=== PATIENT | female | born 1955 | race Caucasian/White ===

== ENCOUNTER 2018-08-09 14:34 | Inpatient (IN) | payer OTHER ==
[~2018-08-09] VITALS: Ht 170.2 cm; Wt 88.5 kg
[2018-08-09] VITALS (11 sets, daily range): BP systolic 92–133; BP diastolic 55–71
--- NOTE | ~2018-08-09 | EKG ---
[place], [place] ELECTROCARDIOGRAM REPORT NAME: KOKO BUSH UNIT #: [id number] ROOM: [facility] DOCTOR: FORREST DRAFT REPORT BIRTHDATE: [birth year] [facility] Test Date: 2018-08-09 Test Time: 21:20:25 Pat Name: KOKO BUSH Department: Room: [facility] Gender: F Computer Project Manager: : 1955 Requested By: SHIRLEY CARREON Order Number: [id number] Reading MD: Fito Zheng MD Measurements Intervals [place] Rate: 87 P: 58 [place]: 117 QRS: -2 QRSD: 91 T: -28 QT: 394 QTc: 474 Interpretive Statements Sinus rhythm, baseline artifact. Borderline short [place] interval Inferior infarct, age indeterminate Electronically Signed On 08-10-2018 15:42:20 PST by Fito Zheng MD CM:EKGRPT:ELECTROCARDIOGRAM REPORT [id number] SHIRLEY MARANY DRAFT REPORT SHIRLEY CARREON MD
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
--- NOTE | ~2018-08-09 | EKG ---
[place], [place] ELECTROCARDIOGRAM REPORT NAME: KOKO BUSH UNIT #: [id number] ROOM: [facility] DOCTOR: FORREST DRAFT REPORT BIRTHDATE: [birth year] [facility] Test Date: 2018-08-09 Test Time: 17:44:55 Pat Name: KOKO BUSH Department: Room: [facility] Gender: F Binder Sorter: Micaela Villa : 1955 Requested By: SHIRLEY CARREON Order Number: [id number] Reading MD: Fito Zheng MD Measurements Intervals [place] Rate: 91 P: 63 [place]: 118 QRS: 67 QRSD: 82 T: 52 QT: 374 QTc: 461 Interpretive Statements Sinus rhythm Borderline short [place] interval Low voltage, extremity leads Electronically Signed On 08-10-2018 15:41:49 PST by Fito Zheng MD CM:EKGRPT:ELECTROCARDIOGRAM REPORT [id number] SHIRLEY CARREON MD EPIPHANY DRAFT REPORT SHIRLEY CARREON MD
--- NOTE | ~2018-08-09 | O ---
[place], [place] OPERATIVE NOTE NAME: KOKO BUSH UNIT #: [id number] ROOM: 505 DOCTOR: JOSE MUNROE MD BIRTHDATE: [birth year] DOS: 08/12/2018 GASTROENDOSCOPIC REPORT INDICATIONS: This is a 63-year-old patient who presented with chief complaint of anemia, undergoing investigation. The patient with a history of hepatitis C, history of multiple medical issues as well. Consultation has been dictated. PROCEDURE: Today's procedure part of investigation is panendoscopy plus biopsy and photographic series. PREMEDICATION: Propofol. SCOPE: Olympus forward-viewing gastroscope Q10 video. REPORT: After putting the patient in left lateral position and application of lubricant to the scope, scope was introduced. Thereafter, under direct visualization, I advanced throughout the length of esophagus. Esophageal varicosity was of 2+, was noticed in multiple rows. Gastric pouch was entered. Gastritis seen. Duodenal bulb, second and third part within normal limits. Small hiatal hernia noticed. The patient extubated, tolerated the procedure well. IMPRESSION: Esophageal varicosity, small hiatal hernia, gastritis, status post biopsy. PLAN AND DISCUSSION: The patient requires famotidine and omeprazole. would suffice management of the gastritis. Supportive care. Elevation of the head of the bed 6 inch all time. Follow up on H and H periodically. Somewhere in future, she is more qualified as far as prominence of esophageal varicosities concerned that esophageal band ligation may be necessary. The patient with a history of juliet hypertension secondary to underlying hepatitis C history. Thank you very much indeed for your kind referral. [place], [place] OPERATIVE NOTE NAME: KOKO BUSH UNIT #: [id number] ROOM: 505 DOCTOR: JOSE MUNROE MD BIRTHDATE: [birth year] JOSE MUNROE MD CM:OPRECORD:OPERATIVE NOTE [id number] JOSE MUNROE MD 08/20/18 0725 interface
--- NOTE | ~2018-08-09 | EKG ---
[place], [place] ELECTROCARDIOGRAM REPORT NAME: KOKO BUSH UNIT #: [id number] ROOM: [facility] DOCTOR: FORREST DRAFT REPORT BIRTHDATE: [birth year] [facility] Test Date: 2018-08-09 Test Time: 15:18:42 Pat Name: KOKO BUSH Department: Room: [facility] Gender: F Reports Analysis Manager: Micaela Villa : 1955 Requested By: SHIRLEY CARREON Order Number: [id number] Reading MD: Fito Zheng MD Measurements Intervals [place] Rate: 90 P: 44 [place]: 126 QRS: 58 QRSD: 74 T: 51 QT: 365 QTc: 447 Interpretive Statements Sinus rhythm Low voltage, extremity leads Electronically Signed On 08-10-2018 15:41:27 PST by Fito Zheng MD CM:EKGRPT:ELECTROCARDIOGRAM REPORT [id number] 1541 SHIRLEY CLAYTON DRAFT REPORT SHIRLEY CARREON MD
[~2018-08-09 14:34] MED LIST: AUGMENTIN 875 M1 TAB PO; CYCLOBENZAPRINE5 M3 PO; DAYPRO600 M1 PO; DICLOFENAC SOD75 MG PO; HYDROCODONE BIT1 T11 PO; MEDROL DOSEPAK4 MG PO; NAPROSYN500 MG PO; NAPROXEN220 MG PO; NORCO 5-325 TA1 EACH PO; VICODIN 5/500 505 MG PO
[2018-08-09 15:08] LABS: HEMATOCRIT 19.6 % (37.0-47.0); MEAN CELL VOLUME 62.6 fl (81.0-99.0); MEAN PLATELET VOLUME 8.8 fl (9.6-12.3); NUCLEATED RED BLOOD CELL 0.1 10*3/uL (0.0-0.0); NUCLEATED RED BLOOD CELL 1.1 % (0.0-0.0); PLATELET COUNT AUTOMATED 262 10*3/uL (130-400); RED BLOOD COUNT 3.13 10*6/uL (4.10-5.10); RED CELL DISTRI WIDTH 26.4 % (0-14.5); WHITE BLOOD COUNT 5.6 10*3/uL (4.8-10.8)
[2018-08-09 15:24] LABS: ACT PARTIAL THROMBO TIME 27.3 SECONDS (20.8-31.5); INTERNATIONAL NORM RATIO 1.3 (2.0-3.5)
[2018-08-09 15:33] LABS: ALBUMIN 2.3 gm/dl (3.1-4.5); ALKALINE PHOSPHATASE 73 U/L (45-117); BUN 12 mg/dl (7-24); CHLORIDE 104 mmol/L (98-107); CREATININE 0.74 mg/dL (0.55-1.02); POTASSIUM 3.7 mmol/L (3.5-5.1); SGOT/AST 40 IU/L (3-35); SGPT/ALT 25 U/L (12-78); SODIUM 135 mmol/L (136-145)
[2018-08-09 15:34] LABS: TROPONIN I < 0.015 ng/ml (<0.045)
[2018-08-09 15:39] LABS: BASOPHILS 1 % (0-1); PLATELET SUFFICIENCY NORMAL (NORMAL); TOTAL CELLS COUNTED 100 #CELLS
[2018-08-09 15:42] LABS: TARGET CELLS FEW
[2018-08-09 15:50] LABS: MICROCYTOSIS SLIGHT
[2018-08-09 15:52] LABS: HEMOGLOBIN 4.7 g/dl (12.0-16.0)
--- NOTE | 2018-08-09 17:25 | NUR ---
PT TOLERATING BLOOD TRANSFUSION WITHOUT DIFFICULTY. VSS. WILL CONTINUE TO MONITOR.
--- NOTE | 2018-08-09 18:25 | NUR ---
A 63, admitted to [facility], under the services of SHIREEN Hicks DO with a diagnosis of GI BLEED. Chief complaint is SHORTNESS OF BREATH. Patient arrived via ambulance from ER. Monitor applied. Initial assessment completed. Vital signs taken and recorded. SHIREEN HICKS DO notified of admission to the unit. Orders received. See assessment for past medical history, medications and allergies. Patient and/or family oriented to unit. [facility] visitation policy reviewed. Clothing/patient valuable form completed. ATUL ROSA
--- NOTE | 2018-08-09 20:00 | NUR ---
PATIENT LAYING IN BED WITH FAMILY AT THE BEDSIDE. PATIENT C/O BACK PAIN THAT RADIATES UP THROUGH SHOULDERS, ABDOMINAL BLOATING AND LEG SWELLING/TIGHTNESS. PATIENT A&OX3 AND AMBULATORY WITH ASSISTANCE. PATIENT REPORTS FEELING SLUGGISH, WEAK AND BECOMES SHORT OF BREATHE WITH EXERTION. BLOOD TRANSFUSING AT THIS TIME, CALL LIGHT WITHIN REACH. SEE ASSESSMENT.
[2018-08-09 21:25] LABS: HEMATOCRIT 22.3 % (37.0-47.0); HEMOGLOBIN 6.3 g/dl (12.0-16.0)
--- NOTE | 2018-08-09 22:19 | NUR ---
IV MORPHINE GIVEN PER PT REQUEST FOR ABDOMINAL PAIN RATED A 8/10 AND DESCRIBED A CONSTANT SHARP STABBING PAIN THAT RADIATES UP THROUGH PATIENT SHOULDERS. WILL CONTINUE TO MONITOR AND REASSESS. CALL LIGHT WITHIN REACH.
--- NOTE | 2018-08-09 23:13 | NUR ---
SPOKE WITH DR. VIDAL REGARDING PATIENT CARE. ORDERS RECEIVED TO GIVE LASIX NOW AND TO RESCHEDULE CBC FOR 3 HOURS AFTER BLOOD TRANSFUSION COMPLETED.
[2018-08-10] VITALS: BP 132/68
[2018-08-10 01:29] LABS: HEMATOCRIT 24.9 % (37.0-47.0); MEAN CORPUSCULAR HGB 19.1 pg (27.0-31.0); MEAN CORPUSCULAR HGB CONC 28.1 g/dl (33.0-37.0); MEAN PLATELET VOLUME 8.8 fl (9.6-12.3); NUCLEATED RED BLOOD CELL 0.1 10*3/uL (0.0-0.0); NUCLEATED RED BLOOD CELL 1.3 % (0.0-0.0); PLATELET COUNT AUTOMATED 206 10*3/uL (130-400); RED BLOOD COUNT 3.66 10*6/uL (4.10-5.10); RED CELL DISTRI WIDTH 28.2 % (0-14.5); WHITE BLOOD COUNT 6.9 10*3/uL (4.8-10.8)
[2018-08-10 01:52] LABS: PLATELET SUFFICIENCY NORMAL (NORMAL); POLYCHROMASIA SLIGHT; TOTAL CELLS COUNTED 100 #CELLS
[2018-08-10 01:53] LABS: MICROCYTOSIS MODERATE; SCHISTOCYTES FEW
[2018-08-10 01:54] LABS: TARGET CELLS FEW
--- NOTE | 2018-08-10 02:15 | NUR ---
DR. VIDAL NOTIFIED OF CBC RESULTS. NO FURTHER ORDERS AT THIS TIME.
--- NOTE | 2018-08-10 03:41 | NUR ---
iv morphine given per pt request for abdominal pain rated 7/10 and described as a sharp pain. will continue to monitor and reassess.
[2018-08-10 04:00] VITALS: BP 116/59
[2018-08-10 05:25] LABS: BUN 13 mg/dl (7-24); CHLORIDE 105 mmol/L (98-107); POTASSIUM 3.6 mmol/L (3.5-5.1); SODIUM 137 mmol/L (136-145)
[2018-08-10 05:36] LABS: CHOLESTEROL 63 mg/dL (<200); FREE T4 1.09 ng/dl (0.76-1.46); HDL CHOLESTEROL 13 mg/dl (40-60); LDL CHOLESTEROL 40 mg/dL (9-159); PHOSPHOROUS 3.2 mg/dL (2.5-4.9); THYROID STIM HORMONE (HS) 0.589 uIU/ml (0.358-4.75); TRIGLYCERIDES 48 mg/dl (<150); VLDL CHOLESTEROL 10 mg/dL (6-40)
[2018-08-10 05:43] LABS: HEMATOCRIT 24.6 % (37.0-47.0); HEMOGLOBIN 6.8 g/dl (12.0-16.0); MEAN CELL VOLUME 67.8 fl (81.0-99.0); MEAN CORPUSCULAR HGB 18.7 pg (27.0-31.0); MEAN CORPUSCULAR HGB CONC 27.6 g/dl (33.0-37.0); MEAN PLATELET VOLUME 9.4 fl (9.6-12.3); NUCLEATED RED BLOOD CELL 0.1 10*3/uL (0.0-0.0); NUCLEATED RED BLOOD CELL 1.3 % (0.0-0.0); PLATELET COUNT AUTOMATED 231 10*3/uL (130-400); RED BLOOD COUNT 3.63 10*6/uL (4.10-5.10); RED CELL DISTRI WIDTH 28.3 % (0-14.5); WHITE BLOOD COUNT 7.1 10*3/uL (4.8-10.8)
[2018-08-10 07:00] LABS: BASOPHILS 1 % (0-1); POLYCHROMASIA SLIGHT; TOTAL CELLS COUNTED 100 #CELLS
[2018-08-10 07:01] LABS: MICROCYTOSIS MODERATE; PLATELET SUFFICIENCY NORMAL (NORMAL); TARGET CELLS FEW
--- NOTE | 2018-08-10 07:32 | NUR ---
DR. MUNROE NOTIFIED OF CBC RESULTS, ORDERS RECEIVED.
[2018-08-10 07:41] LABS: RETICULOCYTE % 3.13 % (0.50-2.50)
--- NOTE | 2018-08-10 07:48 | NUR ---
PT. GIVEN MORPHINE ORDERED FOR COMPLAINTS OF ABDOMINAL PAIN. SASHA SHARMA RN
[2018-08-10 07:54] LABS: VITAMIN D, 25-HYDROXY 21.5 ng/mL (30-100)
[2018-08-10 08:00] VITALS: BP 126/86
--- NOTE | 2018-08-10 08:25 | NUR ---
3RD UNIT OF [facility] HAS STARTED INFUSING AND PT IS TOLERATING WELL.
--- NOTE | 2018-08-10 09:00 | NUR ---
Disaster Or Damage Control Specialist in to talk to patient. Patient states lives at home with her mother. There are basement steps in the home. Physician: no family physician Pharmacy: [facility] Home health services: none Patient's level of ADLs: INDEPENDENT Patient has working utilities: yes DME: none Follow-up physician's appointment after d/c: will be made by the hospitalist nurse director upon discharge Does patient want to access PORTAL?: no Discharge plan discussed with patient. She lives at home with her mother. She is independent in her ADLs and ambulation. Discussed home health care services and she denies any home needs at this time. When medically stable she will be discharged to home. ROSA COLEMAN
--- NOTE | 2018-08-10 11:52 | NUR ---
PATIENT MEDICATED WITH MORPHINE PER DRS ORDERS FOR COMPLAINTS OF UPPER ABDOMINAL PAIN AND PRESSURE. SEE EMAR. RN WILL MONITOR FOR EFFECTIVENESS
[2018-08-10 12:00] VITALS: BP 124/64
[2018-08-10 16:00] VITALS: BP 126/63
--- NOTE | 2018-08-10 16:00 | NUR ---
RETURNED FROM US WITH MUCH RELIEF FOR HAVING 5,275CC REMOVED FROM ABDOMIN.
[2018-08-10 16:51] LABS: HEMATOCRIT 26.7 % (37.0-47.0); HEMOGLOBIN 7.6 g/dl (12.0-16.0)
--- NOTE | 2018-08-10 17:25 | NUR ---
PATIENT MEDICATED WITH MORPHINE PER DR ORDERS FOR COMPLAINTS OF BACK AND ABDOMINAL PAIN. RN WILL CONTINUE TO MONITOR
[2018-08-10 20:00] VITALS: BP 117/60
--- NOTE | 2018-08-10 20:24 | NUR ---
0 RESTING IN BED ON LEFT SIDE. ALERT AND PLEASANT. NO C/O'S PAIN OR DISCOMFORT VOICED AT PRESENT. RIJ MLC INTACT. HEP LOCK INTACT LW. PROTONIX GTT INFUSING WELL. ABD REMAINS SL DISTENEDED. 3-4+ EDEMA CONT OF LOWER EXTREMITIES. NO DISTRESS NOTED.
--- NOTE | 2018-08-10 22:22 | NUR ---
2140 MORPHINE 2MG IV GIVEN FOR C/O'S ABD PAIN. WILL MONITOR.
--- NOTE | 2018-08-10 22:29 | NUR ---
EARLIER PAIN MED EFFECTIVE. RESTING IN BED WITH EYES CLOSED.
[2018-08-11] VITALS: BP 111/55
--- NOTE | 2018-08-11 00:23 | NUR ---
REMAINS SLEEPING WIHTOUT DISTRESS.
--- NOTE | 2018-08-11 02:04 | NUR ---
0155. PT REMAINS NPO. MEDICATED FOR C/O'S ABD PAIN AND A SEVERE H/A WITH MORHPINE 2MG IV. WILL MONITOR.
[2018-08-11 04:00] VITALS: BP 124/58
--- NOTE | 2018-08-11 04:10 | NUR ---
0300 EARLIER PAIN MED EFFECTIVE. RESTING IN BED WITH EYES CLOSED. APPEARS TO BE SLEEPING.
[2018-08-11 05:21] LABS: BUN 15 mg/dl (7-24); CHLORIDE 106 mmol/L (98-107); CREATININE 0.79 mg/dL (0.55-1.02); POTASSIUM 3.9 mmol/L (3.5-5.1); SODIUM 138 mmol/L (136-145)
[2018-08-11 06:00] LABS: HEMATOCRIT 27.6 % (37.0-47.0); HEMOGLOBIN 7.9 g/dl (12.0-16.0); MEAN CELL VOLUME 69.7 fl (81.0-99.0); MEAN CORPUSCULAR HGB 19.9 pg (27.0-31.0); MEAN CORPUSCULAR HGB CONC 28.6 g/dl (33.0-37.0); NUCLEATED RED BLOOD CELL 0.1 10*3/uL (0.0-0.0); NUCLEATED RED BLOOD CELL 0.7 % (0.0-0.0); PLATELET COUNT AUTOMATED 207 10*3/uL (130-400); RED BLOOD COUNT 3.96 10*6/uL (4.10-5.10); RED CELL DISTRI WIDTH 28.9 % (0-14.5)
--- NOTE | 2018-08-11 06:19 | NUR ---
0615 MEDICAATED WITH MORPHINE 2MG IV FOR C/O'S ABD PAIN. WILL MONITOR. RIJ MLC INTACT. PROTONIX GTT INTACT. NO DISTRESS NOTED. CONDITION GUARDED.
--- NOTE | 2018-08-11 06:43 | NUR ---
EARLIER MORPHINE EFFECTIVE. RESTING IN BED WITH EYES CLOSED.
[2018-08-11 07:05] LABS: MICROCYTOSIS MODERATE; PLATELET SUFFICIENCY NORMAL (NORMAL); POLYCHROMASIA SLIGHT; ROULEAUX MODERATE; TOTAL CELLS COUNTED 100 #CELLS
[2018-08-11 07:06] LABS: BURR CELLS FEW
--- NOTE | 2018-08-11 07:30 | NUR ---
SPOKE WITH DR MUNROE AND HE WILL ALLOW A LOW NA DIET FOR TODAY THEN NPO AFTER MIDNIGHT FOR EGD IN AM.
[2018-08-11 08:00] VITALS: BP 121/63
[2018-08-11 12:00] VITALS: BP 129/65
--- NOTE | 2018-08-11 13:11 | NUR ---
MEDICATED WITH MORPHINE 2MGIV FOR C/O R UPPER QUAD PAIN RATED A 8 ON PAIN SCALE. ALSO MEDICATED WITH ZOFRAN FOR C/O NAUSEA.
[2018-08-11 16:00] VITALS: BP 130/66
--- NOTE | 2018-08-11 16:51 | NUR ---
HAVE MEDICATED PT WITH IV MORPHINE 2MG IV EVERY 4 HOURS FOR R UPPER ABD QUAD PAIN. MADE DR GARCIA AWARE AND ABD XRAY HAS BEEN TAKEN. AWAITING RESULTS.
[2018-08-11 20:00] VITALS: BP 123/64
--- NOTE | 2018-08-11 20:12 | NUR ---
1939 RESTING IN BED TALKING WITH VISITORS. ALERT AND PLEASANT. NO DISTRESS NOTED. ABD MORE DISTENDED WITH ACTIVE BS NOTED. RIJ MLC INTACT. PROTONIX GTT CONT. REQUESTING SOMETHING FOR SLEEP. DR. JOHNSON CALLED AND INFORMED. WILL PUT ORDER IN. TEACHING DONE ON EGD TO BE DONE IN AM.
--- NOTE | 2018-08-11 21:05 | NUR ---
2100 MEDICATED WITH MORPHINE 2MG IV FOR C/O'S RUQ PAIN. WILL MONITOR.
--- NOTE | 2018-08-11 22:01 | NUR ---
EARLIER MORPHINE EFFECTIVE. MEDICATED WITH RESTORIL FOR SLEEP. WILL MONITOR.
--- NOTE | 2018-08-11 23:20 | NUR ---
EARLIER RESTORIL EFFECITVE. RESTING IN BED WITH EYES CLOSED. APPEARS TO BE SLEEPING,
[2018-08-12] VITALS (9 sets, daily range): BP systolic 100–141; BP diastolic 50–89
--- NOTE | 2018-08-12 00:31 | NUR ---
NPO FOR EGD IN AM. NO DISTRESS NOTED.
--- NOTE | 2018-08-12 01:23 | NUR ---
0100 MEDICATED WITH MORPHINE 2MG IV FOR C/O'S RUQ PAIN, WILL MONITOR.
--- NOTE | 2018-08-12 04:13 | NUR ---
0200 EARLIER PAIN MED EFFECTIVE.
--- NOTE | 2018-08-12 05:15 | NUR ---
0510 MORPHINE 2MG IV GIVEN FOR C/O'S PAIN RUQ. WILL MONITOR.
[2018-08-12 05:20] LABS: BUN 18 mg/dl (7-24); CHLORIDE 106 mmol/L (98-107); CREATININE 0.92 mg/dL (0.55-1.02); POTASSIUM 3.7 mmol/L (3.5-5.1); SODIUM 138 mmol/L (136-145)
[2018-08-12 05:51] LABS: HEMATOCRIT 28.4 % (37.0-47.0); MEAN CELL VOLUME 71.5 fl (81.0-99.0); MEAN CORPUSCULAR HGB 20.2 pg (27.0-31.0); MEAN CORPUSCULAR HGB CONC 28.2 g/dl (33.0-37.0); NUCLEATED RED BLOOD CELL 0.5 % (0.0-0.0); PLATELET COUNT AUTOMATED 176 10*3/uL (130-400); RED BLOOD COUNT 3.97 10*6/uL (4.10-5.10); RED CELL DISTRI WIDTH 30.4 % (0-14.5); WHITE BLOOD COUNT 8.3 10*3/uL (4.8-10.8)
--- NOTE | 2018-08-12 06:10 | NUR ---
EARLIER PAIN MED EFFECTIVE. RESTING INB ED WITH EYES CLOSED. APPEARS TO BES SLEEPING. REMAINS NPO. CONDITION GUARDED.
[2018-08-12 07:23] LABS: MICROCYTOSIS SLIGHT; PLATELET SUFFICIENCY NORMAL (NORMAL); POLYCHROMASIA SLIGHT; TOTAL CELLS COUNTED 100 #CELLS
--- NOTE | 2018-08-12 08:00 | NUR ---
PT AOOX3. RESP EASY. VSS. PT C/O ABD. PAIN THAT RATES 10/10 ON PAIN SCALE. ABD. DISTENDED WITH ACTIVE BOWEL SOUNDS. 3+ PERIPHERAL LOWER EXT. EDEMA NOTED. REINFORCED PT'S NPO STATUS DUE TO EGD TODAY. PT INFORMED IV MORPHINE NOT DUE UNTIL 9AM.
--- NOTE | 2018-08-12 09:15 | NUR ---
MEDICATED PT PER PRN ORDER WITH IV MORPHINE FOR ABD. PAIN THAT RATES 10/10 ON PAIN SCALE.
--- NOTE | 2018-08-12 10:00 | NUR ---
PT STATES RELIEF OF PAIN WITH EARLIER MORPHINE.
--- NOTE | 2018-08-12 10:13 | NUR ---
PT TO SURGERY VIA BED. CALLED PT'S SISTER,NARINDER AND NOTIFIED HER OF TIME CHANGE ON PT'S SURGERY.
--- NOTE | 2018-08-12 11:56 | NUR ---
Inspector Watch Assembly in to see patient. She is currently not in her room. Will follow up at a later time.
--- NOTE | 2018-08-12 12:30 | NUR ---
PT RETURNED FROM SURGERY VIA BED. VSS. NO COMPLAINTS VOICED AT THIS TIME.
--- NOTE | 2018-08-12 13:37 | NUR ---
Medicated for c/o abdominal and back pain scale. States pain med is not effective and barely takes the edge off. Dr. Simmons aware.
--- NOTE | 2018-08-12 14:37 | NUR ---
PT TRANSFERED TO [facility] VIA BED. PT REORT GIVEN TO RECEIVING NURSE ON 5E. PT STATES NO RELIEF OF PAIN WITH EARLIER MORPHINE. DR GARCIA HAS BEEN NOTIFIED.
--- NOTE | 2018-08-12 14:57 | NUR ---
DR PLASENCIA UPDATED THAT PT HAS NOT VOIDED YET TODAY.
--- NOTE | 2018-08-12 16:00 | NUR ---
PT REQUESTED AND WAS MEDICATED WITH OXY IR FOR C/O ABDOMINAL PAIN. CALL LIGHT IN NREACH. WILL MONITOR
--- NOTE | 2018-08-12 17:00 | NUR ---
PT STATES OXY IR NOT EFFECTIVE. CALL LIGHT IN REACH. WILL MONITOR
--- NOTE | 2018-08-12 18:07 | NUR ---
PT REQUESTED AND WAS MEDICATED WITH MORPHINE IV FOR C/O ABDOMINAL PAIN. CALL LIGHT IN REACH. WILL MONITOR
--- NOTE | 2018-08-12 19:59 | NUR ---
PATIENT RESTING IN BED WITH NO NEEDS MADE. BED IN LOWEST POSITION, CALL LIGHT IN REACH
--- NOTE | 2018-08-12 22:03 | NUR ---
MEDICATED WITH PRN LAURENT FOR C/O ABD PAIN RATED 9/10 ON A 0/10 PAIN SCALE, AND RESTORIL FOR C/O SLEEPLESSNESS
--- NOTE | 2018-08-12 22:56 | NUR ---
24 HR chart check completed.
[2018-08-13] VITALS: BP 134/71
--- NOTE | 2018-08-13 03:11 | NUR ---
PATIENT MEDICATED WITH PRN MORPHINE FOR C/O PAIN RATED 10/10 ON A 0/10 PAIN SCALE
--- NOTE | 2018-08-13 05:57 | NUR ---
PATIENT SOBBING IN BED. MEDICATION WITH LAURENT FOR C/O PAIN RATED 10/10 ON A 0/10 PAIN SCALE. WILL MONITOR
[2018-08-13 06:50] LABS: BASO % 0.4 % (0.0-1.0); EOS # 0.2 10*3/uL (0.0-0.4); EOS % 2.5 % (1.0-4.0); HEMATOCRIT 29.2 % (37.0-47.0); HEMOGLOBIN 8.1 g/dl (12.0-16.0); LYMPH # 1.5 10*3/uL (1.3-4.4); LYMPH % 20.1 % (27.0-41.0); MEAN CELL VOLUME 73.2 fl (81.0-99.0); MEAN CORPUSCULAR HGB 20.3 pg (27.0-31.0); MEAN CORPUSCULAR HGB CONC 27.7 g/dl (33.0-37.0); MONO # 0.9 10*3/uL (0.1-1.0); MONO % 12.9 % (3.0-9.0); NEUT # 4.6 10*3/uL (2.3-7.9); NEUT % 63.7 % (47.0-73.0); PLATELET COUNT AUTOMATED 148 10*3/uL (130-400); RED BLOOD COUNT 3.99 10*6/uL (4.10-5.10); RED CELL DISTRI WIDTH 31.3 % (0-14.5); WHITE BLOOD COUNT 7.2 10*3/uL (4.8-10.8)
[2018-08-13 07:23] LABS: BUN 16 mg/dl (7-24); CHLORIDE 107 mmol/L (98-107); CREATININE 0.97 mg/dL (0.55-1.02); POTASSIUM 3.9 mmol/L (3.5-5.1); SODIUM 138 mmol/L (136-145)
[2018-08-13 08:00] VITALS: BP 128/74
--- NOTE | 2018-08-13 08:20 | NUR ---
PT RESTING IN BED. C/O ABDOMINAL PAIN, TENDER TO TOUCH FIRM AND DISTENDED. MEDICATED WITH MORPHINE IV PER PRN ORDER, SEE EMAR. VISITOR AT HER SIDE. CALL LIGHT IN REACH. SEE SHIFT ASSESSMENT.
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
[2018-08-13 12:00] VITALS: BP 138/66
--- NOTE | 2018-08-13 12:36 | NUR ---
CALLED DR. PLASENCIA MADE AWARE PT BACK FROM RADIOLOGY AND PUNCTURE SITE IS DRAININA A LOT OF CLEAR FLUID. PT SITS UP AND ITS OOZING OUT OF SITE. HE WILL BE UP TO SEE PT.
--- NOTE | 2018-08-13 12:44 | NUR ---
DR. PLASENCIA ON THE FLOOR TO SEE PT. CHANGED DRESSING TO SITE AGAIN WITH WHOLE PACK OF 4X4 AND ABD PAD, STILL DRAINING. NEW DRESSING APPLIED. BED CHANGED.
--- NOTE | 2018-08-13 13:05 | NUR ---
PT C/O ABDOMINAL PAIN, RATES PAIN 8 ON PAIN SCALE 0-10. MEDICATED WITH MORPHINE IV PER PRN ORDER, SEE EMAR. CALL LIGHT IN REACH.
--- NOTE | 2018-08-13 13:15 | NUR ---
CALLED [facility] MADE AWARE OF PT SITE LEAKING WITH MANY SATURATED DRESSINGS. THEY WILL TALK WITH DOCTOR AND CALL ME BACK.
--- NOTE | 2018-08-13 13:37 | NUR ---
PT RATES PAIN 5 ON PAIN SCALE 0-10 IN ABDOMEN. STATES MEDICATION IS HELPING. CALL LIGHT IN REACH.
--- NOTE | 2018-08-13 13:47 | NUR ---
LEANDRO FROM [facility] CALLED THEY ARE GONNA BRING PT BACK DOWN TO HAVE DOCTOR TRY TO GET DRAINAGE TO STOP. IF HE CAN'T THEN THEY WILL PUT IN FOR SURGICAL CONSULT.
--- NOTE | 2018-08-13 13:49 | NUR ---
CALLED DR. PLASENCIA MADE AWARE OF PT GOING BACK TO [facility].
--- NOTE | 2018-08-13 13:50 | NUR ---
CHANGED DRESSING AGAIN WITH A LARGE AMOUNT CLEAR RED TINGED FLUID ON CHUCKS AND SATURATED STACK OF 4X4 AND ABD PAD. SITE DRESSING CHANGED AGAIN AND REINFORCED.
[2018-08-13 14:04] LABS: BODY FLUID WBC 73 /uL
[2018-08-13 14:53] LABS: BF LYMPHOCYTES 7 %; BF MACROPHAGES 77 %; BF MESOTHELIALS 2 %; BF NEUTROPHILS 14 %
[2018-08-13 16:00] VITALS: BP 140/67
--- NOTE | 2018-08-13 16:30 | NUR ---
PT RESTING IN BED C/O BACK AND ABDOMINAL PAIN, RATES PAIN 7 ON PAIN SCALE 0-10. MEDICATED WITH ROXICODONE PO PER PRN ORDER, SEE EMAR. CALL LIGHT IN REACH.
--- NOTE | 2018-08-13 17:20 | NUR ---
STATES PAIN MEDICATION HELPED. CALL LIGHT IN REACH. DRESSING INTACT TO ABDOMEN.
--- NOTE | 2018-08-13 19:40 | NUR ---
MEDICATED WITH MORPHINE IV PER PRN ORDER, SEE EMAR. FOR C/O ABDOMINAL PAIN RATES PAIN 7 ON PAIN SCALE 0-10. CALL LIGHT IN REACH.
[2018-08-13 20:00] VITALS: BP 131/71
--- NOTE | 2018-08-13 21:30 | NUR ---
PT MEDICATED W/RESTORIL PER PT REQUEST TO HELP PROMOTE SLEEP. CALL LIGHT IN REACH.
--- NOTE | 2018-08-13 22:42 | NUR ---
PT MEDICATED W/ROXICODONE FOR C/O RUQ PAIN 03/18. PT TEACHING GIVEN ON PRN PAIN MED TIMES. CALL LIGHT IN REACH. WILL MONITOR FOR EFFECTIVENESS. DRSG TO RLQ DRY AND INTACT.
--- NOTE | 2018-08-13 23:30 | NUR ---
PT RESTING QUIETLY IN BED AT THIS TIME. PRN MEDS EFFECIVE.
[2018-08-14] VITALS: BP 135/57
--- NOTE | 2018-08-14 01:00 | NUR ---
PRN MEDICATION APPEARS EFFECTIVE, PT SLEEPING
--- NOTE | 2018-08-14 03:13 | NUR ---
PATIENT MEDICATED WITH MORPHINE FOR C/O BACK PAIN 03/18. WILL MONITOR
--- NOTE | 2018-08-14 04:13 | NUR ---
MORPHINE APPEARS TO BE EFFECTIVE. NO DISTRESS NOTED. PATIENT RESTING IN BED EYES CLOSED. RESP ARE ERND ON ROOM AIR. CALL LIGHT LEFT WITHIN REACH.
--- NOTE | 2018-08-14 04:52 | NUR ---
24 HR chart check completed.
[2018-08-14 06:26] LABS: HEMATOCRIT 29.1 % (37.0-47.0); HEMOGLOBIN 7.7 g/dl (12.0-16.0); MEAN CELL VOLUME 74.2 fl (81.0-99.0); MEAN CORPUSCULAR HGB 19.6 pg (27.0-31.0); MEAN CORPUSCULAR HGB CONC 26.5 g/dl (33.0-37.0); PLATELET COUNT AUTOMATED 123 10*3/uL (130-400); RED BLOOD COUNT 3.92 10*6/uL (4.10-5.10); RED CELL DISTRI WIDTH 31.8 % (0-14.5)
[2018-08-14 06:43] LABS: BUN 12 mg/dl (7-24); CHLORIDE 107 mmol/L (98-107); CREATININE 0.81 mg/dL (0.55-1.02); SODIUM 137 mmol/L (136-145)
[2018-08-14 07:44] LABS: TOTAL CELLS COUNTED 100 #CELLS
[2018-08-14 07:45] LABS: MICROCYTOSIS SLIGHT; PLATELET SUFFICIENCY LOW (NORMAL); POLYCHROMASIA SLIGHT; SCHISTOCYTES FEW
--- NOTE | 2018-08-14 08:10 | NUR ---
PT RESTING IN BED. REPOSITIONED IN BED. RESP-EASY AND REGULAR. C/O ABDOMINAL PAIN, RATES PAIN 10 ON PAIN SCALE 0-10. MEDICATED WITH OXYCODONE PO PER PRN ORDER, SEE EMAR. PROTONIX INFUSING WITH NO PROBLEM. CALL LIGHT IN REACH. SEE SHIFT ASSESSMENT.
--- NOTE | 2018-08-14 09:00 | NUR ---
RESTING IN BED. STATES PAIN MEDICATION HELPS SOME. CALL LIGHT IN REACH.
--- NOTE | 2018-08-14 10:14 | NUR ---
PT BATHED UP AND RESTING IN BED. C/O ABDOMINAL PAIN AFTER MOVING AROUND. MEDICATED WITH MORPHINE IV PER PRN ORDER, SEE EMAR. RATES PAIN 10 ON PAIN SCALE 0-10. VISITOR AT HER SIDE. CALL LIGHT IN REACH.
--- NOTE | 2018-08-14 11:00 | NUR ---
RESTING IN BED. STATES PAIN MEDICATION HELPED. CALL LIGHT IN REACH.
--- NOTE | 2018-08-14 11:48 | NUR ---
Grade Tamper in to see patient. She is sitting up on the edge of her bed without distress noted. Discussed home health care services and she denies any home needs at this time but she is awaiting the attending to see her to talk about her future options. When medically stable she will be discharged to home.
[2018-08-14 12:00] VITALS: BP 127/62
--- NOTE | 2018-08-14 13:15 | NUR ---
RESTING IN BED. VISITOR AT HER SIDE. CALL LIGHT IN REACH.
--- NOTE | 2018-08-14 14:10 | NUR ---
PT MEDICATED WITH OXYCODONE PO PER PRN ORDER, SEE EMAR. FOR C/O ABDOMINAL PAIN, RATES PAIN 9 ON PAIN SCALE 0-10. CALL LIGHT IN REACH.
[2018-08-14 16:00] VITALS: BP 125/69
--- NOTE | 2018-08-14 16:10 | NUR ---
RESTING IN BED. STATES MEDICATION HELPS. CALL LIGHT IN REACH.
--- NOTE | 2018-08-14 18:30 | NUR ---
SITTING UP IN BED. IV PROTONIX STOPPED. CALL LIGHT IN REACH.
--- NOTE | 2018-08-14 19:53 | NUR ---
PRN MORPHINE GIVEN FOR PT COMPLAINTS OF ABDOMINAL PAIN RATING IT 9/10. CALL LIGHT WITHIN REACH, WILL MONITOR
[2018-08-14 20:00] VITALS: BP 132/79
--- NOTE | 2018-08-14 21:30 | NUR ---
PRN OXY GIVEN FOR PT COMPLAINTS OF PAIN RATING IT 7/10. CALL LIGHT WITHIN REACH, WILL MONITOR
--- NOTE | 2018-08-14 22:30 | NUR ---
PRN MEDICATION SOMEWHAT EFFECTIVE PER PT
--- NOTE | 2018-08-14 23:58 | NUR ---
PRN RESTORIL AND MORPHINE GIVEN FOR PT COMPLAINTS OF SLEEPLESSNESS AND ABDOMINAL PAIN RATING IT 8/10. CALL LIGHT WITHIN REACH, WILL MONITOR
[2018-08-15] VITALS: BP 114/53; BP 116/58
--- NOTE | 2018-08-15 01:00 | NUR ---
PRN MEDICATION APPEARS EFFECTIVE, PT SLEEPING
[2018-08-15 06:47] LABS: BASO # 0.1 10*3/uL (0.0-0.1); BASO % 0.9 % (0.0-1.0); EOS # 0.2 10*3/uL (0.0-0.4); HEMATOCRIT 27.9 % (37.0-47.0); HEMOGLOBIN 7.6 g/dl (12.0-16.0); LYMPH # 1.5 10*3/uL (1.3-4.4); LYMPH % 19.3 % (27.0-41.0); MEAN CELL VOLUME 75.2 fl (81.0-99.0); MEAN CORPUSCULAR HGB 20.5 pg (27.0-31.0); MEAN CORPUSCULAR HGB CONC 27.2 g/dl (33.0-37.0); MONO % 12.9 % (3.0-9.0); NEUT # 5.1 10*3/uL (2.3-7.9); NEUT % 63.5 % (47.0-73.0); PLATELET COUNT AUTOMATED 106 10*3/uL (130-400); RED BLOOD COUNT 3.71 10*6/uL (4.10-5.10); RED CELL DISTRI WIDTH 31.7 % (0-14.5)
[2018-08-15 07:01] LABS: BUN 11 mg/dl (7-24); CHLORIDE 105 mmol/L (98-107); CREATININE 0.74 mg/dL (0.55-1.02); SODIUM 138 mmol/L (136-145)
[2018-08-15 08:00] VITALS: BP 118/64
--- NOTE | 2018-08-15 08:27 | NUR ---
24 HR chart check completed.
--- NOTE | 2018-08-15 08:59 | NUR ---
SITTING AT BEDSIDE VISITING WITH FRIEND. REQUESTED AND RECEIVED MORPHINE IV PER PRN ORDER FOR COMPLAINTS OF UPPER ABD PAIN RATING AROUND INTO BACK RATING A 9. CALL LIGHT WITHIN REACH. WILL MONITOR FOR EFFECTIVENESS
--- NOTE | 2018-08-15 10:00 | NUR ---
STATES EARLIER MORPHINE "HELPED" BUT PAIN REMAINS.
--- NOTE | 2018-08-15 11:10 | NUR ---
DR CHAPMAN PRESENT ON FLOOR TO ASSESS PATIENT AND DISCUSS PLAN OF CARE. AWARE OF WOUNDS TO RIGHT ABD, BACITRACIN ORDERED
[2018-08-15 11:34] VITALS: BP 119/64
--- NOTE | 2018-08-15 12:00 | NUR ---
REQUESTED AND RECEIVED ROXICODONE PER PRN ORDER FOR COMPLAINTS OF RIGHT UPPER ABD PAIN RADIATING INTO BACK RATING A 10. CALL LIGHT WITHIN REACH. WILL MONITOR FOR EFFECTIVENESS
--- NOTE | 2018-08-15 13:08 | NUR ---
STATES MINIMAL RELIEF FROM EARLIER ROXICODONE. REQUESTED AND RECEIVED MORPHINE V PER PRN ORDER FOR COMPLAINTS OF RIGHT UPPER ABD PAIN RADIATING JORDAN BACK. CALL LIGHT WITHIN REACH. WILL MONITOR FOR EFFECTIVENESS
--- NOTE | 2018-08-15 15:00 | NUR ---
STATES RELIEF FROM EARLIER MEDS. RESTING AT BEDSIDE. ENCOURAGED TO ELEVATE BLE BUT PATIENT STATES NOT COMFORTABLE. CONTINUES TO DECLINE TEDS/SCDS. ABD DRAINING SEROUS FLUID, DECLINES DRESSING BE APPLIED.
--- NOTE | 2018-08-15 15:31 | NUR ---
PATIENT SITTING UP IN BED AT THIS TIME. BED IS IN LOWEST POSITION WITH WHEELS LOCKED. CALL LIGHT IS WITHIN REACH. INCISION IN ABDOMINAL AREA IS SEEPING STERI STRIPS ARE INTACT. PATIENT REFUSES DRESSING AND WOULD LIKE THE AREA TO JUST CONTINUE TO DRAIN ON ITS OWN. PER RN HOPE DR CHAPMAN IS AWARE AND HAS SEEN THIS AREA. WILL CONTINUE TO MONITOR DRAINAGE. ENCOURAGED TO USE CALL LIGHT FOR NEEDS.
[2018-08-15 16:00] VITALS: BP 129/64
--- NOTE | 2018-08-15 17:06 | NUR ---
PRN MORPHINE GIVEN AT THIS TIME UPON REQUEST. PATIENT RESTING IN BED WHILE ON CELL PHONE. PATIENT STATES BACK/ABDOMEN PAIN IS RATED 10/10. NO SIGNS OF DISTRESS NOTED. WILL EVALUATE EFFECTIVENESS. CALL LIGHT IS WITHIN REACH.
[2018-08-15 20:00] VITALS: BP 116/59
[2018-08-16] VITALS: BP 109/59
--- NOTE | 2018-08-16 07:34 | NUR ---
PRN MORPHINE GIVEN FOR COMPLAINTS OF ABDOMINAL/BACK PAIN RATED 9/10.
[2018-08-16 08:00] VITALS: BP 120/68
[2018-08-16 08:33] LABS: BASO # 0.1 10*3/uL (0.0-0.1); BASO % 1.1 % (0.0-1.0); EOS # 0.2 10*3/uL (0.0-0.4); EOS % 3.4 % (1.0-4.0); HEMATOCRIT 32.8 % (37.0-47.0); HEMOGLOBIN 8.9 g/dl (12.0-16.0); LYMPH # 1.3 10*3/uL (1.3-4.4); LYMPH % 17.9 % (27.0-41.0); MEAN CELL VOLUME 75.1 fl (81.0-99.0); MEAN CORPUSCULAR HGB 20.4 pg (27.0-31.0); MEAN CORPUSCULAR HGB CONC 27.1 g/dl (33.0-37.0); MONO # 0.9 10*3/uL (0.1-1.0); MONO % 12.2 % (3.0-9.0); NEUT # 4.5 10*3/uL (2.3-7.9); PLATELET COUNT AUTOMATED 132 10*3/uL (130-400); RED BLOOD COUNT 4.37 10*6/uL (4.10-5.10); RED CELL DISTRI WIDTH 31.4 % (0-14.5)
--- NOTE | 2018-08-16 08:47 | NUR ---
24 HR chart check completed.
--- NOTE | 2018-08-16 09:00 | NUR ---
SITTING AT BEDSIDE. RESPIRATIONS EASY. LUNGS DIMINISHED, CLEAR. PULSE OX 98% RA. ABD DISTENDED WITH NORMOACTIVE BOWEL SOUNDS. SEEPING INCISION NOTED RIGHT ABD. PATIENT DECLINES TO HAVE DRESSING APPLIED. +2/+3 PITTING EDEMA NOTED FROM TRUNK TO TOES. CALL LIGHT WITHIN REACH.
--- NOTE | 2018-08-16 09:13 | NUR ---
REQUESTED AND RECEIVED ROXICODONE PER PRN ORDER FOR COMPLAINTS OF PAIN UNDER RIGHT BREAST RADIATING INTO BACK. PATIENT RATES PAIN A 9. CALL LIGHT WITHIN REACH. WILL MONITOR FOR EFFECTIVENESS
--- NOTE | 2018-08-16 09:20 | NUR ---
DR CHAPMAN HERE TO ASSESS PATIENT AND DISCUSS PLAN OF CARE. PAIN MED MANAGEMENT DISCUSSED. WOUND SEEPAGE FROM PARACENTESIS SITE DISCUSSED
--- NOTE | 2018-08-16 10:00 | NUR ---
RESTING IN BED WITH NO ACUTE DISTRESS NOTED. RESPIRATIONS EASY. CALL LIGHT WITHIN REACH. NO FURTHER VOICED COMPLAINTS
[2018-08-16 12:00] VITALS: BP 118/62
--- NOTE | 2018-08-16 13:00 | NUR ---
DR CHAPMAN AND JOHANNY HERE TO ASSESS WOUND
--- NOTE | 2018-08-16 15:07 | NUR ---
REQUESTED AND RECEIVED ROXICODONE PER PRN ORDER FOR COMPLAINTS OF PAIN RATING A 9 UNDER RIGHT BREAST AND RADIATING TO BACK. CALL LIGHT WITHIN REACH. WILL MONITOR FOR EFFECTIVENESS
[2018-08-16 16:00] VITALS: BP 118/69
--- NOTE | 2018-08-16 16:00 | NUR ---
STATES RELIEF FROM EARLIER PAIN MEDS. SITTING AT BEDSIDE PLAYING ON PHONE. CALL LIGHT WITHIN REACH. NO FURTHER VOICED COMPLAINTS
[2018-08-16 20:00] VITALS: BP 123/67
--- NOTE | 2018-08-16 21:15 | NUR ---
MEDICATED WITH ROUTINE OXYCONTIN FOR COMPLAINTS OF PAIN UNDER RIGHT BREAST/RIB AREA RADIATING INTO BACK. ALSO MEDICATED WITH RESTORIL TO ASSIST WITH SLEEP. WILL MONITOR FOR MEDICATION EFFECTIVENESS
--- NOTE | 2018-08-16 22:30 | NUR ---
MEDS EFFECTIVE. SLEEPING. RESPIRATIONS EASY. CALL LIGHT WITHIN REACH.
[2018-08-17] VITALS: BP 118/64
--- NOTE | 2018-08-17 07:40 | NUR ---
PT AWAKE. BEDSIDE REPORT RECEIVED FROM ARIEL WHALEY. NO PT QUESTIONS/CONCERNS AT THIS TIME.
--- NOTE | 2018-08-17 09:00 | NUR ---
Learning Support Specialist in to see patient. No new needs or request at this time. She denies any home needs. When medically stable she will be discharged to home.
--- NOTE | 2018-08-17 09:20 | NUR ---
24 HR CHART CHECK COMPLETE
[2018-08-17] MEDS ORDERED: PROPRANOLOL HCL10 MG PO (11:40)
[2018-08-17] MEDS ORDERED: PANTOPRAZOLE SO40 MG PO (11:40)
[2018-08-17] MEDS ORDERED: OXYCODONE HCL5 MG PO (11:40)
[2018-08-17] MEDS ORDERED: OXYCONTIN10 M1 PO (11:40)
[2018-08-17 12:00] VITALS: BP 110/60
--- NOTE | 2018-08-17 12:17 | NUR ---
KOKO BUSH [id number] Please refer to the physician's history and physical for past medical history, comorbid conditions, and allergies. Diagnosis: SOB,GI BLEED,CIRRHOSIS Oracio Score: 16,AT RISK WOUND DESCRIPTIONS: Location of the wound: RIGHT ABD 12 O'CLOCK POSITION Thickness: Partial Size: 0.2cm X 0.6cm X 0.1cm Tunneling: NONE Undermining: NONE Sinus Tract: NONE Presence of Exudate: NONE Amount: None Color: Red Odor: None Periwound Skin Appearance: Normal Wound edges: APPROXIMATED Pain (associated with wound): DENIED AT TIME OF ASSESSMENT How does patient state this happened? PATIENT STATES THIS OCCURED AFTER DRESSING WAS REMOVED AFTER PARACENTESIS. Location of the wound: RIGHT ABD 1 O'CLOCK POSITION Thickness: Partial Size: 0.7cm X 0.6cm X 0.1cm Tunneling: NONE Undermining: NONE Sinus Tract: NONE Presence of Exudate: NONE Amount: None Color: Red Odor: None Periwound Skin Appearance: Normal Wound edges: APPROXIMATED Pain (associated with wound): DENIED AT TIME OF ASSESSMENT How does patient state this happened? PATIENT STATES THIS OCCURED AFTER DRESSING WAS REMOVED AFTER PARACENTESIS. Location of the wound: RIGHT ABD 10 O'CLOCK POSITION Thickness: Partial Size: 0.6cm X 0.9cm X 0.1cm Tunneling: NONE Undermining: NONE Sinus Tract: NONE Presence of Exudate: NONE Amount: None Color: Red Odor: None Periwound Skin Appearance: Normal Wound edges: APPROXIMATED Pain (associated with wound): DENIED AT TIME OF ASSESSMENT How does patient state this happened? PATIENT STATES THIS OCCURED AFTER DRESSING WAS REMOVED AFTER PARACENTESIS. Location of the wound: RIGHT ABD 9 O'CLOCK POSITION Thickness: Partial Size: 0.4cm X 0.9cm X 0.1cm Tunneling: NONE Undermining: NONE Sinus Tract: NONE Presence of Exudate: NONE Amount: None Color: Red Odor: None Periwound Skin Appearance: Normal Wound edges: APPROXIMATED Pain (associated with wound): DENIED AT TIME OF ASSESSMENT How does patient state this happened? PATIENT STATES THIS OCCURED AFTER DRESSING WAS REMOVED AFTER PARACENTESIS. Location of the wound: RIGHT ABD 8 O'CLOCK POSITION Thickness: Partial Size: 1.5cm X 0.9cm X 0.1cm Tunneling: NONE Undermining: NONE Sinus Tract: NONE Presence of Exudate: NONE Amount: None Color: Red Odor: None Periwound Skin Appearance: Normal Wound edges: APPROXIMATED Pain (associated with wound): DENIED AT TIME OF ASSESSMENT How does patient state this happened? PATIENT STATES THIS OCCURED AFTER DRESSING WAS REMOVED AFTER PARACENTESIS. Location of the wound: RIGHT ABD 7 O'CLOCK POSITION Thickness: Partial Size: 0.9cm X 1.5cm X 0.1cm Tunneling: NONE Undermining: NONE Sinus Tract: NONE Presence of Exudate: NONE Amount: None Color: Red Odor: None Periwound Skin Appearance: Normal Wound edges: APPROXIMATED Pain (associated with wound): DENIED AT TIME OF ASSESSMENT How does patient state this happened? PATIENT STATES THIS OCCURED AFTER DRESSING WAS REMOVED AFTER PARACENTESIS. THREE INTACT STERI STRIPS NOTED. PATIENT STATES THIS IS THE PLACE OF THE PARACENTESIS. NO DRAINAGE NOTED AT TIME OF ASSESSMENT. Surface the patient is resting on: Isoflex SKIN PREVENTION RECOMMENDATION: 1. Pressure redistribution support surface as appropriate 2. Elevate heels 3. Remove boots/TEDS every shift and reapply 4. Head of bed 30 degrees as tolerated 5. Assess nutrition and hydration 6. Manage moisture 7. Avoid the use of containment devices while in bed 8. Use absorptive products on surfaces limit layers of linens on bed 9. Turn and reposition every 1-2 hours in bed and every 1 hour in chair as tolerated 10. Weight shifts every 15 minutes while up in chair 11. Offloading with pillows or device to keep heels elevated off bed 12. Monitor skin at least every shift 13. Inspect under medical devices twice a day WOUND TREATMENT RECOMMENDATIONS: CONTINUE CURRENT ORDERS.
--- NOTE | 2018-08-17 13:40 | NUR ---
Discharge instructions reviewed with patient/family. Patient receptive and verbalizes understanding. Follow-up care arranged. Written instructions given to patient/family. PT INFORMED OF SCRIPTS IN [facility] ANGIE JACOBS
[2018-09-16] MEDS ORDERED: VITAMIN D32000 UNI1 PO (09:29)
[2018-09-16] MEDS ORDERED: ALDACTONE25 MG PO (09:29)
[2018-09-16] MEDS ORDERED: OXYCODONE HYDROC5 M1 PO (09:29)
[2018-09-16] MEDS ORDERED: BUMETANIDE1 MG PO (09:29)
[2018-09-16] MEDS ORDERED: OXYCONTIN10 M1 PO (09:29)
[2018-12-29] MEDS ORDERED: ZYRTEC10 M3 PO (14:48)
[2018-12-31] MEDS ORDERED: ALDACTONE25 MG PO (14:12)
== END 2018-08-17 14:10 | disposition home or self-care (01) | DRG 432 ==
LOC: ED 14:34 → ICCU 17:38 → EDHOLD 17:38 → ICCU 18:00 → 5E 08-12 14:33
PROVIDERS: Emergency Medicine; Family Medicine; Internal Medicine; Internal Medicine Gastroenterology; Student in an Organized Health Care Education/Training Program; ADMIT Internal Medicine
PROC: 30233N1 Transfusion of Nonautologous Red Blood Cells into Peripheral Vein, Percutaneous Approach (ICD-10-PCS; principal; 2018-08-09)
PROC: B548ZZA Ultrasonography of Superior Vena Cava, Guidance (ICD-10-PCS; 2018-08-09)
PROC: 02HV33Z Insertion of Infusion Device into Superior Vena Cava, Percutaneous Approach (ICD-10-PCS; 2018-08-09)
PROC: 0W9G3ZZ Drainage of Peritoneal Cavity, Percutaneous Approach (ICD-10-PCS; 2018-08-10)
PROC: 0DB68ZX Excision of Stomach, Via Natural or Artificial Opening Endoscopic, Diagnostic (ICD-10-PCS; 2018-08-12)
PROC: 0W9G3ZZ Drainage of Peritoneal Cavity, Percutaneous Approach (ICD-10-PCS; 2018-08-13)
DX: K74.60 Unspecified cirrhosis of liver (principal); K29.71 Gastritis, unspecified, with bleeding; E43 Unspecified severe protein-calorie malnutrition; I85.11 Secondary esophageal varices with bleeding; R65.10 Systemic inflammatory response syndrome (SIRS) of non-infectious origin without acute organ dysfunction; E87.2 Acidosis; R18.8 Other ascites; K76.6 Portal hypertension; E87.1 Hypo-osmolality and hyponatremia; F17.210 Nicotine dependence, cigarettes, uncomplicated; D50.0 Iron deficiency anemia secondary to blood loss (chronic); R74.0 Nonspecific elevation of levels of transaminase and lactic acid dehydrogenase [LDH]; Z71.6 Tobacco abuse counseling; E55.9 Vitamin D deficiency, unspecified; B19.20 Unspecified viral hepatitis C without hepatic coma; K44.9 Diaphragmatic hernia without obstruction or gangrene; Z68.34 Body mass index [BMI] 34.0-34.9, adult

== ENCOUNTER 2019-02-08 07:27 | Inpatient (IN) | payer OTHER ==
[2019-02-08] VITALS (11 sets, daily range): BP systolic 98–127; BP diastolic 48–90
[~2019-02-08] VITALS: Ht 167.6 cm; Wt 67.2 kg
--- NOTE | ~2019-02-08 | EKG ---
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
[~2019-02-08 07:27] MED LIST changes: +ALDACTONE25 MG PO; +BUMETANIDE1 MG PO; +OXYCODONE HCL5 MG PO; +OXYCODONE HYDROC5 M1 PO; +OXYCONTIN10 M1 PO; +PANTOPRAZOLE SO40 MG PO; +PROPRANOLOL HCL10 MG PO; +VITAMIN D32000 UNI1 PO; +ZYRTEC10 M3 PO
[2019-02-08 08:10] LABS: BASO % 0.3 % (0.0-1.0); EOS % 0.3 % (1.0-4.0); HEMATOCRIT 31.9 % (37.0-47.0); HEMOGLOBIN 9.4 g/dl (12.0-16.0); LYMPH % 19.2 % (27.0-41.0); MEAN CELL VOLUME 78.2 fl (81.0-99.0); MEAN CORPUSCULAR HGB CONC 29.5 g/dl (33.0-37.0); MEAN PLATELET VOLUME 9.1 fl (9.6-12.3); MONO # 0.9 10*3/uL (0.1-1.0); MONO % 8.8 % (3.0-9.0); NEUT # 7.4 10*3/uL (2.3-7.9); NEUT % 71.2 % (47.0-73.0); PLATELET COUNT AUTOMATED 514 10*3/uL (130-400); RED BLOOD COUNT 4.08 10*6/uL (4.10-5.10); RED CELL DISTRI WIDTH 25.1 % (0-14.5); WHITE BLOOD COUNT 10.4 10*3/uL (4.8-10.8)
[2019-02-08 08:20] LABS: INTERNATIONAL NORM RATIO 1.2 (2.0-3.5)
[2019-02-08 08:41] LABS: ALBUMIN 1.7 gm/dl (3.1-4.5); ALKALINE PHOSPHATASE 97 U/L (45-117); BUN 32 mg/dl (7-24); CHLORIDE 97 mmol/L (98-107); POTASSIUM 4.3 mmol/L (3.5-5.1); SGOT/AST 249 IU/L (3-35); SGPT/ALT 98 U/L (12-78); SODIUM 133 mmol/L (136-145); TOTAL PROTEIN 7.5 gm/dL (6.4-8.2); TROPONIN I < 0.015 ng/ml (<0.045)
[2019-02-08 08:51] LABS: BILIRUBIN 2+ (NEGATIVE); BLOOD 3+ (NEGATIVE); CLARITY SL CLOUDY (CLEAR); COLOR YELLOW (YELLOW); GLUCOSE NEGATIVE (NEGATIVE); KETONE NEGATIVE (NEGATIVE); LEUKO ESTERASE NEGATIVE (NEGATIVE); NITRITE NEGATIVE (NEGATIVE)
[2019-02-08 08:56] LABS: RBC 16-20 rbc/hpf (0-2)
[2019-02-08 08:57] LABS: BACTERIA TRACE; HYALINE CAST 16-20
[2019-02-09] VITALS (7 sets, daily range): BP systolic 102–120; BP diastolic 52–99
[2019-02-09 06:41] LABS: BASO % 0.3 % (0.0-1.0); EOS # 0.1 10*3/uL (0.0-0.4); EOS % 1.1 % (1.0-4.0); HEMATOCRIT 27.9 % (37.0-47.0); HEMOGLOBIN 8.3 g/dl (12.0-16.0); LYMPH # 2.1 10*3/uL (1.3-4.4); LYMPH % 23.4 % (27.0-41.0); MEAN CELL VOLUME 77.5 fl (81.0-99.0); MEAN CORPUSCULAR HGB 23.1 pg (27.0-31.0); MEAN CORPUSCULAR HGB CONC 29.7 g/dl (33.0-37.0); MEAN PLATELET VOLUME 9.6 fl (9.6-12.3); MONO # 1.1 10*3/uL (0.1-1.0); MONO % 12.5 % (3.0-9.0); NEUT # 5.7 10*3/uL (2.3-7.9); NEUT % 62.3 % (47.0-73.0); PLATELET COUNT AUTOMATED 390 10*3/uL (130-400); RED CELL DISTRI WIDTH 25.1 % (0-14.5); WHITE BLOOD COUNT 9.1 10*3/uL (4.8-10.8)
[2019-02-09 07:12] LABS: BUN 23 mg/dl (7-24); CHLORIDE 103 mmol/L (98-107); CREATININE 1.11 mg/dL (0.55-1.02); PHOSPHOROUS 3.2 mg/dL (2.5-4.9); POTASSIUM 3.7 mmol/L (3.5-5.1); SODIUM 136 mmol/L (136-145)
[2019-02-10] VITALS: BP 108/64
[2019-02-10 06:35] LABS: BASO # 0.1 10*3/uL (0.0-0.1); BASO % 0.5 % (0.0-1.0); EOS # 0.1 10*3/uL (0.0-0.4); EOS % 0.8 % (1.0-4.0); HEMATOCRIT 29.3 % (37.0-47.0); HEMOGLOBIN 8.7 g/dl (12.0-16.0); LYMPH # 2.4 10*3/uL (1.3-4.4); LYMPH % 22.9 % (27.0-41.0); MEAN CELL VOLUME 79.2 fl (81.0-99.0); MEAN CORPUSCULAR HGB 23.5 pg (27.0-31.0); MEAN CORPUSCULAR HGB CONC 29.7 g/dl (33.0-37.0); MEAN PLATELET VOLUME 9.2 fl (9.6-12.3); MONO # 1.4 10*3/uL (0.1-1.0); NEUT # 6.7 10*3/uL (2.3-7.9); NEUT % 62.5 % (47.0-73.0); PLATELET COUNT AUTOMATED 391 10*3/uL (130-400); RED CELL DISTRI WIDTH 24.9 % (0-14.5); WHITE BLOOD COUNT 10.7 10*3/uL (4.8-10.8)
[2019-02-10 06:55] LABS: ALBUMIN 1.8 gm/dl (3.1-4.5); CREATININE 1.16 mg/dL (0.55-1.02); POTASSIUM 3.7 mmol/L (3.5-5.1)
[2019-02-10 06:57] LABS: TOTAL PROTEIN 6.9 gm/dL (6.4-8.2)
[2019-02-10 08:00] VITALS: BP 104/70
[2019-02-10 12:00] VITALS: BP 112/63
[2019-02-10] MEDS ORDERED: HYDROCODONE-AC1 EAC1 PO (13:37)
== END 2019-02-10 13:57 | disposition home or self-care (01) | DRG 432 ==
LOC: ED 07:27 → 5E 09:23 → EDHOLD 09:23 → 5E 09:29
PROVIDERS: Family Medicine; Internal Medicine; Student in an Organized Health Care Education/Training Program; ADMIT Internal Medicine
PROC: 0W9G3ZZ Drainage of Peritoneal Cavity, Percutaneous Approach (ICD-10-PCS; principal; 2019-02-10)
DX: K74.60 Unspecified cirrhosis of liver (principal); N17.0 Acute kidney failure with tubular necrosis; K76.7 Hepatorenal syndrome; E43 Unspecified severe protein-calorie malnutrition; R18.8 Other ascites; E87.1 Hypo-osmolality and hyponatremia; E86.0 Dehydration; N18.3 Chronic kidney disease, stage 3 (moderate); F17.210 Nicotine dependence, cigarettes, uncomplicated; D47.3 Essential (hemorrhagic) thrombocythemia; E87.8 Other disorders of electrolyte and fluid balance, not elsewhere classified; E83.41 Hypermagnesemia; E80.6 Other disorders of bilirubin metabolism; B18.2 Chronic viral hepatitis C; D50.9 Iron deficiency anemia, unspecified; R74.0 Nonspecific elevation of levels of transaminase and lactic acid dehydrogenase [LDH]; Z71.6 Tobacco abuse counseling; Z86.19 Personal history of other infectious and parasitic diseases; Z79.899 Other long term (current) drug therapy; Z84.89 Family history of other specified conditions; Z68.23 Body mass index [BMI] 23.0-23.9, adult

== ENCOUNTER 2019-02-15 12:57 | Emergency (ER) | payer OTHER ==
[~2019-02-15] VITALS: Ht 170.1 cm; Wt 81.6 kg
--- NOTE | ~2019-02-15 | EKG ---
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
[~2019-02-15 12:57] MED LIST changes: +HYDROCODONE-AC1 EAC1 PO
[2019-02-15 13:55] LABS: HEMATOCRIT 37.2 % (37.0-47.0); HEMOGLOBIN 10.9 g/dl (12.0-16.0); MEAN CELL VOLUME 84.7 fl (81.0-99.0); MEAN CORPUSCULAR HGB 24.8 pg (27.0-31.0); MEAN CORPUSCULAR HGB CONC 29.3 g/dl (33.0-37.0); MEAN PLATELET VOLUME 9.4 fl (9.6-12.3); NUCLEATED RED BLOOD CELL 0.2 % (0.0-0.0); PLATELET COUNT AUTOMATED 483 10*3/uL (130-400); RED BLOOD COUNT 4.39 10*6/uL (4.10-5.10); RED CELL DISTRI WIDTH 25.3 % (0-14.5); WHITE BLOOD COUNT 21.6 10*3/uL (4.8-10.8)
[2019-02-15 14:06] LABS: INTERNATIONAL NORM RATIO 4.1 (2.0-3.5)
[2019-02-15 14:10] LABS: ALBUMIN 1.6 gm/dl (3.1-4.5); ALKALINE PHOSPHATASE 402 U/L (45-117); BUN 62 mg/dl (7-24); CHLORIDE 89 mmol/L (98-107); CREATININE 4.39 mg/dL (0.55-1.02); SODIUM 123 mmol/L (136-145); TOTAL PROTEIN 6.7 gm/dL (6.4-8.2)
[2019-02-15 14:19] LABS: BILIRUBIN 2+ (NEGATIVE); BLOOD NEGATIVE (NEGATIVE); CLARITY SL CLOUDY (CLEAR); COLOR BROWN (YELLOW); GLUCOSE NEGATIVE (NEGATIVE); KETONE NEGATIVE (NEGATIVE); LEUKO ESTERASE NEGATIVE (NEGATIVE); NITRITE POSITIVE (NEGATIVE); SPECIFIC GRAVITY 1.025 (1.005-1.030)
[2019-02-15 14:27] LABS: POTASSIUM 7.2 mmol/L (3.5-5.1); SGOT/AST 3438 IU/L (3-35); SGPT/ALT 1928 U/L (12-78); TROPONIN I < 0.015 ng/ml (<0.045)
[2019-02-15 14:31] LABS: BACTERIA 4+; EPITHELIAL CELLS 0-2; MUCOUS TRACE; RBC 0-2 rbc/hpf (0-2)
[2019-02-15 14:31] LABS: TOTAL CELLS COUNTED 100 #CELLS
[2019-02-15 14:33] LABS: BURR CELLS FEW
[2019-02-15 14:34] LABS: PLATELET SUFFICIENCY HIGH (NORMAL)
[2019-02-15 18:35] LABS: CKMB 9.5 ng/ml (0.5-3.6)
[2019-02-15 20:15] VITALS: BP 101/31; BP 105/47; BP 107/37; BP 107/39; BP 108/42; BP 111/40; BP 114/34; BP 124/34; BP 97/37
== END 2019-02-15 22:53 | disposition short-term general hospital (02) ==
LOC: ED 12:57
PROVIDERS: Emergency Medicine
DX: A41.9 Sepsis, unspecified organism (principal); K65.2 Spontaneous bacterial peritonitis; N17.9 Acute kidney failure, unspecified; E87.5 Hyperkalemia; K76.7 Hepatorenal syndrome; N18.3 Chronic kidney disease, stage 3 (moderate); R45.1 Restlessness and agitation; R41.82 Altered mental status, unspecified; F17.210 Nicotine dependence, cigarettes, uncomplicated; Z87.19 Personal history of other diseases of the digestive system